=== PATIENT | female | born 1985 | race Caucasian/White ===

== ENCOUNTER 2021-07-02 09:35 | Inpatient (IN) | payer OTHER ==
[~2021-07-02] VITALS: Ht 160 cm; Wt 65.5 kg
[~2021-07-02 09:35] MED LIST: DOCU-131 PO; IBUP-1222 PO; IBUP200T49 PO; PREN1TAB60 PO
[2021-07-02 09:56] VITALS: BP 131/75
[2021-07-02] MEDS ORDERED: ACYC200C13 PO (14:21)
[2021-07-02] MEDS ORDERED: PREN1TAB60 PO (14:21)
[2021-07-02] MEDS ORDERED: NEWBORN KIT ONE (14:24)
[2021-07-02] MEDS ORDERED: OXYTOCIN 30U/ 0.9% NaCL 500ML 500 ML ONE (14:25)
[2021-07-02] MEDS ORDERED: MISOPROSTOL 200 MCG TABLET ONE (14:25)
[2021-07-02] MEDS ORDERED: LIDOCAINE 1%, 20ML ONE (14:25)
[2021-07-02] MEDS: LACTATED RINGERS 1,000 ML IV SCH ×2 (15:09→22:42)
[2021-07-02 15:29] LABS: BASOPHILS % (AUTO) 0 % (0-1); EOSINOPHILS % (AUTO) 0 % (1-7); LYMPHOCYTES % (AUTO) 21 % (22-44); MEAN CORPUSCULAR HGB CONC 34.2 g/dL (32.4-35.8); MEAN PLATELET VOLUME 9.7 fL (7.4-10.4); MONOCYTES % (AUTO) 5 % (2-9); NEUTROPHILS % (AUTO) 73 % (42-75); PLATELET COUNT 185 x10^3/uL (130-400); RED BLOOD COUNT 3.73 x10^6/uL (3.82-5.3); RED CELL DISTRIBUTION WIDTH 13.2 % (9.6-15.2)
[2021-07-02] MEDS ORDERED: CALCIUM CARBONATE 500 MG TAB.CHEW PO PRN (15:30)
[2021-07-02] MEDS ORDERED: TERBUTALINE 1 MG/ML, 1ML SQ PRN (15:30)
[2021-07-02] MEDS ORDERED: SODIUM CITRATE/CITRIC ACID 30 ML UDC PO PRN (15:30)
[2021-07-02] MEDS ORDERED: OXYTOCIN 30U/ 0.9% NaCL 500ML 500 ML IV ONE (15:30)
[2021-07-02] MEDS ORDERED: OXYTOCIN 30U/ 0.9% NaCL 500ML 500 ML IV PRN (15:30)
[2021-07-02] MEDS ORDERED: FENTANYL PF 100 MCG/2ML IVPush PRN (15:30)
[2021-07-02] MEDS ORDERED: FENTANYL PF 100 MCG/2ML IV PRN (15:30)
[2021-07-02] MEDS ORDERED: TERBUTALINE 1 MG/ML, 1ML IVPush PRN (15:30)
[2021-07-02] MEDS ORDERED: BUPIVACAINE 0.25% ONE (21:54)
[2021-07-02] MEDS ORDERED: FENTANYL/BUPIV./NS/PF 250 ML EPIDCONT ONE (21:54)
[2021-07-02] MEDS ORDERED: LACTATED RINGERS 1,000 ML IV SCH (22:00)
[2021-07-02] MEDS ORDERED: FENTANYL/BUPIV./NS/PF 250 ML EPIDCONT SCH (22:00)
[2021-07-02] MEDS ORDERED: EPHEDRINE 50 MG/ML, 1ML IVPush PRN (22:00)
[2021-07-02] MEDS ORDERED: NALOXONE 0.4 MG/ML, 1ML IVPush PRN (22:00)
[2021-07-02] MEDS ORDERED: LACTATED RINGERS 1,000 ML IVBOLUS PRN (22:00)
[2021-07-03] MEDS: OXYTOCIN 30U/ 0.9% NaCL 500ML 500 ML IV SCH ×11 (02:50→12:36)
[2021-07-03] MEDS ORDERED: ONDANSETRON 2MG/ML, 2ML IV PRN (04:00)
[2021-07-03] MEDS ORDERED: MISOPROSTOL 200 MCG TABLET PR PRN (04:00)
[2021-07-03] MEDS ORDERED: BISACODYL 10 MG SUPP PR PRN (04:00)
[2021-07-03] MEDS ORDERED: SIMETHICONE 80 MG CHEW TAB PO PRN (04:00)
[2021-07-03] MEDS ORDERED: HYDROcodone/APAP 5/325 TABLET PO PRN ×2 (04:00)
[2021-07-03] MEDS ORDERED: ACETAMINOPHEN 325 MG TABLET PO PRN ×2 (04:00)
[2021-07-03] MEDS ORDERED: CALCIUM CARBONATE 500 MG TAB.CHEW PO PRN (04:00)
[2021-07-03 05:40] VITALS: BP 117/74
[2021-07-03 07:30] VITALS: BP 110/69
[2021-07-03] MEDS: PRENATAL VIT/IRON/FA 1 EACH TABLET PO SCH (09:00)
[2021-07-03] MEDS: DOCUSATE 100 MG CAPSULE PO PRN ×2 (09:50→21:22)
[2021-07-03 11:17] LABS: BASOPHILS % (AUTO) 0 % (0-1); EOSINOPHILS % (AUTO) 0 % (1-7); LYMPHOCYTES % (AUTO) 13 % (22-44); MEAN CORPUSCULAR HEMOGLOBIN 32.3 pg (27.0-34.8); MEAN CORPUSCULAR HGB CONC 34.8 g/dL (32.4-35.8); MEAN PLATELET VOLUME 10.1 fL (7.4-10.4); MONOCYTES % (AUTO) 5 % (2-9); NEUTROPHILS % (AUTO) 82 % (42-75); PLATELET COUNT 171 x10^3/uL (130-400); RED BLOOD COUNT 3.52 x10^6/uL (3.82-5.3); RED CELL DISTRIBUTION WIDTH 12.9 % (9.6-15.2)
[2021-07-03 12:10] VITALS: BP 109/71
[2021-07-03] MEDS: IBUPROFEN 600 MG TABLET PO PRN (15:57)
[2021-07-03 16:30] VITALS: BP 136/84
[2021-07-03 19:20] VITALS: BP 111/70
[2021-07-03 23:33] VITALS: BP 120/82
[2021-07-04] MEDS: IBUPROFEN 600 MG TABLET PO PRN ×2 (02:13→08:41)
[2021-07-04 04:00] VITALS: BP 122/81
[2021-07-04] MEDS ORDERED: IBUP-1222 PO (05:54)
[2021-07-04 07:30] VITALS: BP 116/77
[2021-07-04] MEDS: DOCUSATE 100 MG CAPSULE PO PRN (08:41)
[2021-07-04] MEDS: PRENATAL VIT/IRON/FA 1 EACH TABLET PO SCH (08:41)
== END 2021-07-04 13:20 | disposition home or self-care (01) | DRG 806 ==
LOC: LDOP 09:35 → LDIP 14:54 → 2NW 07-03 05:04
PROVIDERS: ADMIT Obstetrics & Gynecology; ATTEND Obstetrics & Gynecology
PROC: 3E0234Z Introduction of Serum, Toxoid and Vaccine into Muscle, Percutaneous Approach (ICD-10-PCS; principal; 2021-07-03)
PROC: 10E0XZZ Delivery of Products of Conception, External Approach (ICD-10-PCS; 2021-07-03)
PROC: 10907ZC Drainage of Amniotic Fluid, Therapeutic from Products of Conception, Via Natural or Artificial Opening (ICD-10-PCS; 2021-07-03)
PROC: 3E033VJ Introduction of Other Hormone into Peripheral Vein, Percutaneous Approach (ICD-10-PCS; 2021-07-03)
PROC: 0HQ9XZZ Repair Perineum Skin, External Approach (ICD-10-PCS; 2021-07-03)
PROC: 3E0R3BZ Introduction of Anesthetic Agent into Spinal Canal, Percutaneous Approach (ICD-10-PCS; 2021-07-03)
PROC: 00HU33Z Insertion of Infusion Device into Spinal Canal, Percutaneous Approach (ICD-10-PCS; 2021-07-03)
PROC: 10H07YZ Insertion of Other Device into Products of Conception, Via Natural or Artificial Opening (ICD-10-PCS; 2021-07-03)
DX: O36.5930 Maternal care for other known or suspected poor fetal growth, third trimester, not applicable or unspecified (principal); O41.03X0 Oligohydramnios, third trimester, not applicable or unspecified; Z37.0 Single live birth; O76 Abnormality in fetal heart rate and rhythm complicating labor and delivery; Z20.822 Contact with and (suspected) exposure to COVID-19; O26.893 Other specified pregnancy related conditions, third trimester; O70.0 First degree perineal laceration during delivery; Z3A.37 37 weeks gestation of pregnancy; Z82.49 Family history of ischemic heart disease and other diseases of the circulatory system; Z67.11 Type A blood, Rh negative
CPT/HCPCS: 36415; 76819; 84112; 85025; 85461; 86592; 86850; 86900; 87635; G0378; J2790; J2590; J7120